=== PATIENT | female | born 1965 | race Caucasian/White ===

== ENCOUNTER → 2021-02-09 | Outpatient (CLI) | payer BC ==
[2015-12-04 00:30] VITALS: BP 122/78
[~2021-02-09] MED LIST: DILT120C99 PO; DULO60CA6 PO; HYDR-2761 PO; LEVO112T49 PO; LISI10TA16 PO; OMEP40CA45 PO
== END ==
LOC: LAB 11:06
PROVIDERS: ATTEND Orthopaedic Surgery
DX: Z01.812 Encounter for preprocedural laboratory examination (principal); Z20.822 Contact with and (suspected) exposure to COVID-19; G56.01 Carpal tunnel syndrome, right upper limb; M65.4 Radial styloid tenosynovitis [de Quervain]
CPT/HCPCS: U0003; U0005

== ENCOUNTER 2021-02-10 07:05 | Day surgery (SDC) | payer BC ==
[~2021-02-10] VITALS: Ht 160 cm; Wt 102.1 kg
[~2021-02-10 07:05] MED LIST changes: -HYDR-2761 PO; +HYDROmorphone 2 MG/ML VIAL IVP PRN; +IV RINGERS,LACTATED 1000ML 1,000 ML IV SCH; +MIDAZOLAM HCL/PF 2 MG/2 ML VIAL. ONE; +MORPHINE SULFATE 2 MG/ML VIAL. IVP PRN; +PROCHLORPERAZINE 10 MG/2 ML VIAL. IVP PRN; +fentaNYL PF VIAL 100 MCG/2 ML VIAL IVP PRN
[2021-02-10] MEDS ORDERED: ONDANSETRON PF 4 MG/2 ML VIAL. ONE (07:12)
[2021-02-10] MEDS ORDERED: SEVOFLURANE 16 TO 30 MINUTES. IH ONE (07:12)
[2021-02-10] MEDS ORDERED: HYDR-2761 PO (07:44)
--- NOTE | 2021-02-10 07:45 | DISCH ---
DISCHARGE INSTRUCTIONS Condition on Discharge Condition on Discharge: Stable Activity After Discharge Activity Instructions for Disc: Other, see below (Avoid hard grasping; may do fine motor use such as eating writing and typing and similar activity) Weight Bearing Status after Di: Non weight bearing Diet after Discharge Diet after Discharge: Regular Wound Incision Care Wound/Incision Care: Do not change dressing (Keep dressing clean dry and do not remove unless wet or soiled) Contacting the DRDebora after DC Call your doctor for: Concerns you may have Follow-Up Follow up with: Dr. Paniagua or [facility] 7 to 10 days KARTHIK PANIAGUA MD Feb 10, 2021 07:45
[2021-02-10] MEDS ORDERED: BUPIVACAINE MPF 0.25% 30 ML VIAL. ONE (08:35)
[2021-02-10 10:15] VITALS: BP 147/83
--- NOTE | 2021-02-10 16:52 | PDOC4 ---
Operative Note Operative Note Date of surgery: 02/10/2021 Preoperative diagnosis: Right carpal tunnel syndrome and de Quervain's tenosynovitis Postoperative diagnosis: Same with moderate median nerve compression Operative procedure: Right carpal tunnel release and first dorsal compartment release Surgeon: Arcelia Anesthesia: Blanca block was ineffective then converted to general Assist: Octavio lyons Estimated blood loss: 2 cc Complications: None Operative indications: Patient has worsening paresthesia in the median nerve distribution on the right hand and EMG verification of carpal tunnel syndrome as well as pain over the first dorsal compartment which was unrelieved by nonoperative measures. I had gone over with her the risks benefits postoperative course of carpal tunnel release including the possibility of infection nerve or blood vessel damage incisional area pain and the possibility of incomplete relief. All her questions were answered she wishes to proceed with surgical evaluation and treatment Operative text: Patient was identified procedure verified patient placed in the supine position on the operating table. After adequate amounts of general anesthesia were administered the right upper extremity was prepped and draped in standard sterile fashion with an upper arm tourniquet and a [place] block instituted. With the tourniquet inflated to 250 mmHg. After timeout was performed patient procedure identified and verified [place] block was noted to be an adequate and was converted to general anesthetic. A longitudinal incision was made just distal to the distal palmar crease dissection carried out to identify the transverse carpal ligament which was divided longitudinally under direct vision and verified visually and palpably to be released completely to its proximal and distal extent. Recurrent branch was identified and preserved a nd the tendons were noted to be free from synovitis. Median nerve was noted to have moderate compression. The first dorsal compartment was identified and a longitudinal incision carried out over the radial styloid area overlying the first dorsal compartment and the tendon sheath was completely divided and was noted to be thickened with excess fluid. The tendons in the first dorsal compartment otherwise intact and there was no subluxation noted. Following release. Thorough irrigation carried with normal saline solution skin closure accomplished with nylon suture in a vertical mattress fashion sterile soft dressings were applied fingers were noted be warm pink following deflation of the tourniquet patient returned to recovery room in stable condition having tolerated procedure well. Octavio lyons present for the procedure and assisted with patient positioning prepping draping retraction closure and dressings KARTHIK TRIANA MD Feb 10, 2021 16:52
== END 2021-02-10 10:42 | disposition home or self-care (01) ==
LOC: SURG 07:05
PROVIDERS: ATTEND Orthopaedic Surgery
DX: G56.01 Carpal tunnel syndrome, right upper limb (principal); M65.4 Radial styloid tenosynovitis [de Quervain]; I10 Essential (primary) hypertension; K21.9 Gastro-esophageal reflux disease without esophagitis; G47.30 Sleep apnea, unspecified; M19.90 Unspecified osteoarthritis, unspecified site; E03.9 Hypothyroidism, unspecified; Z87.891 Personal history of nicotine dependence; Z79.899 Other long term (current) drug therapy; Z98.890 Other specified postprocedural states; Z72.89 Other problems related to lifestyle
CPT/HCPCS: 64721; A4930; J0690; J2250; J2405; J3490; A4657; A6452